=== PATIENT | female | born 1955 | race Caucasian/White ===

== ENCOUNTER 2019-02-14 13:17 | Emergency (ER) | payer OTHER ==
[~2019-02-14] VITALS: Ht 154.9 cm; Wt 75.7 kg
[2019-02-14 13:40] VITALS: BP 161/81
--- NOTE | 2019-02-14 14:18 | NUR ---
DR. SUAREZ AT BEDSIDE TO EVALUATE PT.
[2019-02-14 15:01] LABS: BASOPHILS % (AUTO) 0.4 % (0.0-2.0); HEMATOCRIT 38.6 % (36-48); HEMOGLOBIN 13.1 g/dL (12.0-16.0); LYMPHOCYTES # (AUTO) 1.1 K/uL (2.5-16.5); MEAN CORPUSCULAR HEMOGLOBIN 30 pg (27-31); MEAN CORPUSCULAR HGB CONC 34 g/dL (33-37); MEAN CORPUSCULAR VOLUME 88.3 fL (80-94); MONOCYTES # (AUTO) 0.3 K/uL (0.8-1.0); MONOCYTES % (AUTO) 5.4 % (1.7-9.3); NEUTROPHILS # (AUTO) 3.9 K/uL (1.8-7.7); NEUTROPHILS % (AUTO) 73.2 % (42.2-75.2); PLATELET COUNT (AUTO) 161 K/uL (140-450); RED BLOOD CELL COUNT(AUTO) 4.37 MIL/uL (4.20-5.40); RED CELL DISTRIBUTION WIDTH 13.5 % (11.6-13.7); WHITE BLOOD COUNT (AUTO) 5.3 K/uL (4.8-10.8)
[2019-02-14 15:06] LABS: ANION GAP 14.2 (8-16); CARBON DIOXIDE 26.6 mmol/L (21-32); CREATININE 0.7 mg/dL (0.6-1.3); POTASSIUM 3.8 mmol/L (3.5-5.1)
--- NOTE | 2019-02-14 15:13 | NUR ---
PT RESTING QUIETLY WITH FAMILY AT BEDSIDE. SINUS RHYTHM ON MONITOR. DENIES PAIN/SOB/PALPITATIONS.
[2019-02-14 15:21] LABS: ALBUMIN 3.7 g/dL (3.4-5.0); THYROID STIMULATING HORMONE 1.87 uIU/mL (0.34-3.74); TOTAL BILIRUBIN 0.4 mg/dL (0.0-1.0)
--- NOTE | 2019-02-14 16:15 | NUR ---
PT RE-EVALUATED BY DR. SUAREZ. PT HAS NO COMPLAINTS, WANTS TO GO HOME. DR. SUAREZ SPOKE TO PT AND FAMILY REGARDING DISCHARGE.
[2019-02-14 16:16] VITALS: BP 149/76
--- NOTE | 2019-02-14 16:18 | NUR ---
Patient discharged with v/s stable. Written and verbal after care instructions given and explained. Patient verbalized understanding. Ambulatory with steady gait. All questions addressed prior to discharge. Advised to follow up with PMD. COPIES OF LABS, EKG, AND X RAY GIVEN TO PT.
== END 2019-02-14 16:18 | disposition home or self-care (01) ==
LOC: MED 13:17
DX: I10 Essential (primary) hypertension (principal); R00.2 Palpitations; E11.9 Type 2 diabetes mellitus without complications
CPT/HCPCS: 36415; 71045; 80053; 84443; 84484; 85025; 93005; 99284; Q0092